=== PATIENT | male | born 1980 | race Caucasian/White ===

== ENCOUNTER 2019-02-09 10:27 | Emergency (ER) | payer OTHER ==
--- NOTE | 2019-02-09 10:31 | PDOC ---
History of Present Illness - General Chief Complaint: Chest Pain Stated Complaint: CHEST PAIN - History of Present Illness Initial Comments: The pt is a 38M w/ a history of T1DM who presents for evaluation of 3 days of intermittent chest pain. The pain began while cycling 2 days ago, he was able to make it through his workout and the pain subsided later that day. The pain returned yesterday evening while walking and has persisted since that time. It is substernal tightness that is non-radiating, constant, worse with deep inspiration, and not exacerbated or alleviated by anything he can identify. He denies fevers/chills, [place], vision changes, trouble breathing, N/V, or having these symptoms previously. 02/09/19 10:46 Past History - Past Medical History Allergies/Adverse Reactions: Allergies Allergy/AdvReac Type Severity Reaction Status Date / Time cefaclor [From Ceclor] Allergy Unknown Verified 02/09/19 10:29 Home Medications: Ambulatory Orders Insulin (Novolog) [Novolog] 0 units SQ AC 02/09/19 Review of Systems - Review of Systems Able to Perform ROS?: Yes Comments:: GENERAL/CONSTITUTIONAL: No fever or chills. No weakness HEAD, EYES, EARS, NOSE AND THROAT: No change in vision. No change in hearing. No sore throat CARDIOVASCULAR: No shortness of breath RESPIRATORY: Denies cough, hemoptysis GASTROINTESTINAL: No nausea, vomiting, diarrhea or constipation GENITOURINARY: No dysuria, frequency, or change in urination MUSCULOSKELETAL: No joint or muscle swelling or pain. No neck or back pain SKIN: No rash NEUROLOGIC: No headache, vertigo, loss of consciousness, or change in strength/ sensation ENDOCRINE: No increased thirst. No abnormal weight change HEMATOLOGIC/LYMPHATIC: No anemia, easy bleeding, or history of blood clots ALLERGIC/IMMUNOLOGIC: No hives or skin allergy 02/09/19 10:30 Is the patient limited Latvian proficient: No *Physical Exam - Vital Signs Vital Signs Temp Pulse Resp BP Pulse Ox 98.2 F 75 16 122/90 98 02/09/19 10:02/09/19 10:02/09/19 10:02/09/19 10:02/09/19 10:02/09/19 10:50 - Physical Exam Comments: GENERAL: Awake, alert, and oriented to person/place/time, in no acute distress HEAD: No signs of trauma, normocephalic, atraumatic EYES: PERRLA, EOMI, sclera anicteric, conjunctiva clear ENT: Hearing grossly normal, nares patent, oropharynx clear without exudates. Moist mucosa LUNGS: No distress, speaks in full sentences, clear to auscultation bilaterally CHEST: No chest wall TTP HEART: Regular rate and rhythm, normal S1 and S2, no murmurs appreciated, peripheral pulses normal and equal bilaterally ABDOMEN: Soft, nontender, normoactive bowel sounds. No guarding, no rebound. No masses EXTREMITIES: Normal inspection, Normal range of motion, no edema. No clubbing or cyanosis NEUROLOGICAL: Cranial nerves II through XII grossly intact. Normal speech, normal gait, no focal sensorimotor deficits SKIN: Warm, Dry 02/09/19 10:30 Heart Score/ECG Review - History History: Slightly suspicious - Electrocardiogram EKG: Non specific repolarization disturbance - Age Age: </= 45 - Risk Factors Risk Factors Heart Score: Yes Hx Diabetes Based on the list above the patient has:: 1-2 risk factors - Troponin Troponin: </= normal limit - Score Heart Score - Total: 2 ED Treatment Course - LABORATORY CBC & Chemistry Diagram: 02/09/19 11:00 02/09/19 11:00 Medical Decision Making - Medical Decision Making The pt is a 38M w/ a history of T1DM who presents for evaluation of 3 days of chest pain ED Course Pt s/p ASA at Urgent Care HEART score 2 CMP, CBC, Trop I CXR ECG 02/09/19 10:51 ECG w/ sinus bradycardia at 59; notable for J-point elevation in V1-6 but no pathologic [place], no axis deviation CXR w/o acute pathology 02/09/19 11:31 Trop I neg Lytes wnl No anemia No leukocytosis LFTs wnl Pt's not not likely due to cardiac etiology at this time Pt and his updated on findings Plan for D/C w/ PCP f/u Discharge instructions and return precautions given Patient in agreement and verbalized understanding Dispo: Home 02/09/19 12:10 Discharge - Discharge Information Problems reviewed: Yes Clinical Impression/Diagnosis: Chest pain Qualifiers: Chest pain type: unspecified Qualified Code(s): R07.9 - Chest pain, unspecified Condition: Good Disposition: HOME - Admission No - Follow up/Referral Referrals: Felicity Patrick [Primary Care Provider] - - Patient Discharge Instructions Patient Printed Discharge Instructions: DI for Atypical Chest Pain Additional Instructions: You were seen in the Emergency Department for chest pain. Your Troponin was negative and the remainder of your labs were also unremarkable. Review the handout provided at discharge. Follow up with your primary care provider within a week. Return to the Emergency Department if you develop a change/worsening of your pain, trouble breathing, chest pressure, vision changes, dizziness, changes in sensation/weakness, worsening symptoms, or any new/concerning symptoms. - Post Discharge Activity
[2019-02-09 10:55] VITALS: BMI 27.0
[2019-02-09 11:33] LABS: BASO % 0.9 % (0-2.0); EOS % 1.8 % (0-4.5); HEMATOCRIT 47.6 % (35.4-49); HEMOGLOBIN 15.9 GM/dl (11.7-16.9); LYMPH % 39.1 % (8-40); MCH 29.2 pg (25.7-33.7); MCHC 33.5 g/dl (32.0-35.9); MEAN CELL VOLUME 87.2 fl (80-96); MEAN PLT VOLUME 8.4 fl (7.5-11.1); NEUT % 48.2 % (42.8-82.8); PLATELET COUNT 269 K/MM3 (134-434); RBC 5.46 M/mm3 (4.00-5.60); RDW 12.1 % (11.9-15.9); WHITE BLOOD COUNT 4.3 K/mm3 (4.0-10.8)
[2019-02-09 11:39] LABS: ALBUMIN 3.9 g/dl (3.4-5.0); CALCIUM 8.9 mg/dl (8.5-10); CREATININE 0.9 mg/dl (0.55-1.3); POTASSIUM 4.6 mmol/L (3.5-5.1); TOT PROT 6.6 g/dl (6.4-8.2)
[2019-02-09 11:43] VITALS: BP 108/69; PULSE 65
[2019-02-09 11:54] VITALS: TEMP 98
--- NOTE | 2019-02-09 12:11 | PDOC ---
Attending Attestation - Resident Resident Name: Gonzalez Brown - ED Attending Attestation I have performed the following: I have examined & evaluated the patient, The case was reviewed & discussed with the resident, I agree w/resident's findings & plan - HPI HPI: 02/09/19 12:06 38-year-old man with a history of type 1 diabetes presents complaining of left- sided chest pain and left arm tingling for 3 days. No other cardiac risk factors, active, uses insulin pump for tight control of his diabetes, hemoglobin A1c was last measured at 7. The symptoms started while exercising on a bike, but they continued at rest. Patient had similar symptoms all day yesterday with left-sided chest pain and left arm tingling. His is a physician, and he told her this morning. She did an EKG which showed some J-point elevation in the precordial leads. She states that she feels this is low risk chest pain, however she requested ED evaluation. She sent him to the ED requesting a single troponin given that his symptoms have been present for the most part over the last 48 hours. - Physicial Exam PE: 02/09/19 12:07 Vital signs noted, normal. Patient is awake, alert, fully oriented, appears comfortable. Skin is warm and dry. Lungs are clear. Heart is regular rhythm without gallop or murmur. Extremities are warm and well perfused. Impression: Normal physical exam. - Medical Decision Making 02/09/19 12:08 Impression: 38-year-old man with a history of type 1 diabetes with atypical chest pain lasting for several days, onset on , still present today on Monday. Given aspirin by his 325 mg this morning. Twelve-lead EKG was reviewed by me from the one done by his this morning. Repeat EKG was performed in the emergency department. There is sinus bradycardia at a rate of 59 bpm. The axis is normal. The intervals are normal. There is J-point elevation throughout the precordial leads from V1 to V6, as well as in some of the limb leads. Laboratory studies were performed, troponin and other labs normal. Impression: Atypical chest pain, history is atypical for acute coronary syndrome , physical examination is normal, twelve-lead EKG shows benign-appearing J- point elevation, and troponin is negative. Phone call placed to the patient's regarding ED findings. Patient will follow-up with his physician next week. Stable for discharge with follow-up. Laboratory Results - last 24 hr 02/09/19 02/09/19 02/09/19 11:00 11:00 11:00 WBC 4.3 RBC 5.46 Hgb 15.9 Hct 47.6 MCV 87.2 MCH 29.2 MCHC 33.5 RDW 12.1 Plt Count 269 MPV 8.4 Absolute Neuts (auto) 2.1 Neutrophils % 48.2 Lymphocytes % 39.1 Monocytes % 10.0 Eosinophils % 1.8 Basophils % 0.9 Sodium 139 Potassium 4.6 Chloride 102 Carbon Dioxide 32 Anion Gap 5 L BUN 22.0 H Creatinine 0.9 Est GFR (CKD-EPI)AfAm 126.02 Est GFR (CKD-EPI)NonAf 108.73 Random Glucose 227 H Calcium 8.9 Total Bilirubin 1.0 AST 18 ALT 20 Alkaline Phosphatase 64 Troponin I < 0.03 Total Protein 6.6 Albumin 3.9
--- NOTE | 2019-02-11 13:23 | EKG ---
Test Reason : Blood Pressure : / mmHG Vent. Rate : 059 BPM Atrial Rate : 059 BPM P-R Int : 160 ms QRS Dur : 088 ms QT Int : 416 ms P-R-T Axes : 064 048 042 degrees QTc Int : 411 ms SINUS BRADYCARDIA OTHERWISE NORMAL ECG NO PREVIOUS ECGS AVAILABLE Confirmed by UDAY ALY MD ([id number]) on 02/11/2019 1:23:08 PM Referred By: RIGO MCGRATH Confirmed By:UDAY ALY MD
== END 2019-02-09 12:18 | disposition home or self-care (01) ==
LOC: FER 10:27
DX: R07.9 Chest pain, unspecified (principal); E10.9 Type 1 diabetes mellitus without complications; Z79.4 Long term (current) use of insulin; Z88.8 Allergy status to other drugs, medicaments and biological substances
CPT/HCPCS: 36415; 71046-TC-FY; 80053; 84484; 85025; 93005; 99284-25